=== PATIENT | female | born 1985 | race Caucasian/White ===

== ENCOUNTER 2016-11-15 08:03 | Day surgery (SDC) | payer BC ==
[~2016-11-15] VITALS: Ht 165.1 cm; Wt 99.8 kg
[~2016-11-15 08:03] MED LIST: ADVIL,NUPRIN,M200 MG PO; ENDOCET 5-3251 EACH PO; IBUPROFEN800 MG PO; Levothroid,Synthroid PO; MIRENA52 MG IY; Motrin PO; NATALCARE RX1 TABLE1 PO; SYNTHROID125 MCG PO; TYLENOL EXTRA500 MG PO
[2016-11-15 08:29] VITALS: BP 131/80
[2016-11-15 09:38] LABS: METH RESISTANT S AUREUS PCR NEGATIVE (NEGATIVE)
[2016-11-15 09:43] LABS: PROBE CHECK PASS; SPECIMEN PROCESSING CONTROL PASS
[2016-11-15 11:35] VITALS: BP 118/80
[2016-11-15 12:35] VITALS: BP 113/59
== END 2016-11-15 12:50 | disposition home or self-care (01) ==
LOC: SDC 08:03
PROVIDERS: Obstetrics & Gynecology
DX: Z30.2 Encounter for sterilization (principal); E03.9 Hypothyroidism, unspecified; Z82.49 Family history of ischemic heart disease and other diseases of the circulatory system; Z80.3 Family history of malignant neoplasm of breast; Z83.3 Family history of diabetes mellitus; Z82.3 Family history of stroke
CPT/HCPCS: 87641; J0330; J1100; J1885; J2250; J2405; J2710; J2765; J3010; Q0175; S0020